=== PATIENT | male | born 1950 | race Caucasian/White ===

== ENCOUNTER 2017-04-01 12:39 | Outpatient (CLI) | payer OTHER ==
[~2017-04-01 12:39] MED LIST: HYDR50TA3 PO; POTA-118 PO; PRAM0.253 PO; VERA240T16 PO; [UNRECOGNIZED DRUG - CODE] PO
== END 2017-04-01 20:00 | disposition home or self-care (01) ==
LOC: SRD 12:39
PROVIDERS: ATTEND Internal Medicine
DX: M19.011 Primary osteoarthritis, right shoulder (principal)
CPT/HCPCS: 73030

== ENCOUNTER 2023-04-04 08:00 | Outpatient (CLI) | payer OTHER ==
[~2023-04-04] VITALS: Ht 180.3 cm; Wt 156.5 kg
[~2023-04-04 08:00] MED LIST changes: -HYDR50TA3 PO; +HYDR50TA4 PO; -POTA-118 PO; +POTA10TA15 PO
[2023-04-07] MEDS ORDERED: CLINDAMYCIN PHOS IV ONE ×2 (07:00)
[2023-04-07] MEDS ORDERED: D5W IV ONE ×2 (07:00)
== END 2023-04-04 15:06 | disposition home or self-care (01) ==
LOC: SLB 08:00 → EDSTATUS 04-07 10:30
PROVIDERS: ATTEND Otolaryngology
DX: J33.0 Polyp of nasal cavity (principal)
CPT/HCPCS: 87081; J3490; J7060